=== PATIENT | female | born 1975 | race Caucasian/White ===

== ENCOUNTER 2019-10-10 11:09 | Emergency (ER) | payer OTHER ==
[~2019-10-10] VITALS: Ht 182.9 cm; Wt 104.3 kg
[2019-10-10 11:20] VITALS: Ht 182.9 cm; Wt 104.3 kg
[2019-10-10 12:46] VITALS: BP 120/71
== END 2019-10-10 12:46 | disposition home or self-care (01) ==
LOC: ED 11:09
DX: F41.9 Anxiety disorder, unspecified (principal)

== ENCOUNTER 2019-11-01 07:34 | Emergency (ER) | payer OTHER ==
[~2019-11-01] VITALS: Ht 182.9 cm; Wt 109.1 kg
[2019-11-01 07:39] VITALS: Ht 182.9 cm; Wt 109.1 kg
[2019-11-01 08:37] VITALS: BP 134/66
== END 2019-11-01 08:37 | disposition home or self-care (01) ==
LOC: ED 07:34
DX: F11.23 Opioid dependence with withdrawal (principal); Y92.89 Other specified places as the place of occurrence of the external cause; G89.29 Other chronic pain; F41.9 Anxiety disorder, unspecified; Z88.6 Allergy status to analgesic agent

== ENCOUNTER 2019-12-13 08:12 | Emergency (ER) | payer OTHER ==
[~2019-12-13] VITALS: Ht 182.9 cm; Wt 108.4 kg
[2019-12-13 08:25] VITALS: BP 119/70; Ht 182.9 cm; Wt 108.4 kg
== END 2019-12-13 09:39 | disposition home or self-care (01) ==
LOC: ED 08:12
DX: M54.41 Lumbago with sciatica, right side (principal); Z88.6 Allergy status to analgesic agent; Z90.49 Acquired absence of other specified parts of digestive tract
CPT/HCPCS: J1885

== ENCOUNTER 2020-08-15 04:34 | Emergency (ER) | payer OTHER ==
[~2020-08-15] VITALS: Ht 182.9 cm; Wt 106.6 kg
[2020-08-15 04:40] VITALS: Ht 182.9 cm; Wt 106.6 kg
[2020-08-15 05:44] LABS: BASOPHIL % 0.6 % (0-2); PLATELET COUNT 335 x10^3mcL (130-400); RED CELL DISTRIBUTION WIDTH 14.6 % (11.5-14.5)
[2020-08-15 05:54] LABS: CALCIUM 8.9 mg/dL (8.5-10.1); CARBON DIOXIDE 25.1 mmol/L (21-32); CHLORIDE SERUM 103 mmol/L (98-107); GFR1 > 60 mL/min; GLUCOSE SERUM 124 mg/dL (74-106); POTASSIUM SERUM 4.5 mmol/L (3.5-5.1); SODIUM SERUM 138 mmol/L (136-145)
[2020-08-15 05:58] LABS: ALKALINE PHOSPHATASE 82 U/L (46-116); ALT/SGPT 31 U/L (14-59); AST/SGOT 17 U/L (15-37); BILIRUBIN TOTAL 0.26 mg/dL (0.20-1.00); LIPASE 212 IU/L (73-393); TOTAL PROTEIN, SERUM 7.5 g/dL (6.4-8.2)
[2020-08-15 09:01] VITALS: BP 136/72
== END 2020-08-15 09:01 | disposition home or self-care (01) ==
LOC: ED 04:34
PROVIDERS: Student in an Organized Health Care Education/Training Program
DX: N20.0 Calculus of kidney (principal); Z90.49 Acquired absence of other specified parts of digestive tract; Z88.6 Allergy status to analgesic agent
CPT/HCPCS: J0500; J1885; J2270; J2405; J3490; J7030; Q9967

== ENCOUNTER 2020-10-25 08:49 | Emergency (ER) | payer OTHER ==
[~2020-10-25] VITALS: Ht 182.9 cm; Wt 98.0 kg
[2020-10-25 08:54] VITALS: BP 117/73; Ht 182.9 cm; Wt 98.0 kg
== END 2020-10-25 10:58 | disposition home or self-care (01) ==
LOC: ED 08:49
DX: T19.2XXA Foreign body in vulva and vagina, initial encounter (principal); N39.0 Urinary tract infection, site not specified; Z90.49 Acquired absence of other specified parts of digestive tract; Z88.6 Allergy status to analgesic agent; X58.XXXA Exposure to other specified factors, initial encounter; Y93.89 Activity, other specified; Y92.89 Other specified places as the place of occurrence of the external cause; Y99.8 Other external cause status